=== PATIENT | female | born 1995 | race Caucasian/White ===

== ENCOUNTER 2021-01-04 11:30 | Outpatient (CLI) | payer OTHER, BC, SELFPAY ==
[2021-01-04 12:20] LABS: Hematocrit 34.9 % (37.0-47.0); Hemoglobin 11.7 g/dL (12.0-15.0); Mean Corpuscular HGB Conc 33.5 g/dl (32-36); Mean Corpuscular Hemoglobin 29.4 pg (26-34); Mean Corpuscular Volume 87.7 fl (80-100); Mean Platelet Volume 9.8 fl (7.4-10.4); Platelet Count Result 310 k/mm3 (150-375); Red Blood Count 3.98 M/mm3 (4.2-5.4); Red Cell Distribution Width 12.8 % (11.5-14.5); White Blood Count 9.4 K/mm3 (4.5-10.0)
[2021-01-05 10:35] LABS: Rapid Plasma Reagin Non-Reactive (NonReactive)
== END 2021-01-04 11:31 | disposition home or self-care (01) ==
PROVIDERS: Visit Provider Obstetrics & Gynecology
DX: Z01.818 Encounter for other preprocedural examination (principal)
CPT/HCPCS: 36415; 85027; 86592; 86850; 86900; 86901

== ENCOUNTER 2021-01-05 05:19 | Inpatient (IN) | payer BC, SELFPAY ==
--- NOTE | 2020-12-21 14:12 | PC.NURSE ---
PATIENT STATES BABY IS BREECH. STATES DR HUGHES HAS NOT SCHEDULED HER FOR C/S YET PATIENT GIVEN ALL THE INSTRUCTED ON NORMAL PRE-OP ROUTINE FOR C/S AND GIVEN REQUISITION FOR PRE-OP LAB DRAW
[2021-01-05] VITALS (59 sets, daily range): BP systolic 69–115; BP diastolic 30–85; PULSE 59–100; RESP 12–16; TEMP 36.4–37.1; O2SAT 95–100; BMI 31.2
[2021-01-05] MEDS: LACTATED RINGERS 1,000 ML 999 ML IV CONT ×2 (05:57→06:31)
--- NOTE | 2021-01-05 06:43 | WPDANESEPPF ---
Anes - Initial Pre Proc Eval Procedure: Operation Date: 01/05/21 07:30 Proposed Procedures p Primary Section - Natalia Canada MD Date/Time: 01/05/21 06:43 Surgeon: Natalia Canada MD Pre Op Diagnosis: C/S Patient Data Age: 25 Gender: F Height: 1.55 m Weight: 75 kg Last Vital Signs Pulse 82 01/05/21 05:42 BP 103/65 01/05/21 05:42 Allergies Allergy/AdvReac Type Severity Reaction Status Date / Time penicillin G Allergy Unknown Verified 12/21/20 13:44 Home Medications Medication Instructions Recorded Confirmed Type metoclopramide HCl 10 mg PO Q6H PRN 12/21/20 12/21/20 History prenat.vits,mickie,rjl-oasd-gerbt 1 tablet PO DAILY 12/21/20 12/21/20 History [ #2] sertraline 100 mg PO DAILY 12/21/20 12/21/20 History Patient hx anesthesia problems: none Family hx anesthesia problems: none PMFSH Family History Family History (Updated 12/21/20 @ 13:57 by Ehsan Marshall RN) Father Depression Bipolar 1 disorder Hypertension Mother Depression Hypertension Sibling Depression Grandparent Diabetes mellitus Depression Breast cancer in female Lung cancer Social History Social History Smoking status: Never smoker Second hand tobacco smoke exposure: Yes Substance use: never Spiritual care concerns: No Anes - Eval Final PreProcedure Day of Procedure 01/05/21 06:43 Patient weight: obese Heart: regular rate and rhythm Lungs: clear to auscultation and normal air movement Airway: Mallampati scale class III Neurological: alert and oriented Last oral intake: >/= 8 hours ASA classification: II Emergent: no Anesthetic plan: proceed Anesthesia type and monitoring: regional spinal and standard monitoring Informed Consent: The patient's anesthetic plan and its attendant risks and benefits were discussed with the patient/family/POA. Questions were solicited and answers provided to the satisfaction of the patient/family/POA.
--- NOTE | 2021-01-05 06:47 | PM.IMHP ---
H&P: HPI History of Present Illness Date/Time: 01/05/21 06:47 Tete is a 25yo @ 38.2wks (JOSE 01/17/21) who presents for scheduled due to breech malpresentation and IUGR. She has had regular care w/ [facility] and [facility]FM. She reports good movement. No LOF, VB. Her is complicated by: - Single umbilical artery and IUGR (<5%ile); has had routine care - Breech malpresentation - Paternal sister with T1; s/p low risk cffDNA - Anxiety and depression on zoloft 100mg Chief Complaint: scheduled Review of Systems Review of Systems: All systems reviewed & are unremarkable except as noted in HPI and below (HPI) [facility] Family History Family History Father Depression Bipolar 1 disorder Hypertension Mother Depression Hypertension Sibling Depression Grandparent Diabetes mellitus Depression Breast cancer in female Lung cancer Social History Social History Smoking status: Never smoker Second hand tobacco smoke exposure: Yes Substance use: never Spiritual care concerns: No Meds Home Medications and Allergies Home Medications Medication Instructions Recorded Confirmed Type metoclopramide HCl 10 mg PO Q6H PRN 12/21/20 12/21/20 History prenat.vits,mickie,vyp-nvla-lecsn 1 tablet PO DAILY 12/21/20 12/21/20 History [ #2] sertraline 100 mg PO DAILY 12/21/20 12/21/20 History Allergies Allergy/AdvReac Type Severity Reaction Status Date / Time penicillin G Allergy Unknown Verified 12/21/20 13:44 Vital Signs Vital Signs - 24 hr 01/05/21 05:42 Pulse Rate 82 Blood Pressure 103/65 Exam Const: General: cooperative, healthy appearing, comfortable and no acute distress Resp: Effort & Inspection: normal respiratory effort and able to speak in complete sentences Cardio: Rate: regular rate GI: GI Palp: No abdominal tenderness and Yes Soft to palpation : Other: FHT's: 120's/ mod danis/ + accels/ no decels - cat 1 TOCO: no ctx's Membranes: intact Presentation: breech Skin: General skin exam: normal color Neuro: General: patient oriented x3 Extrem: General: normal to inspection Psych: Appearance: grossly normal Affect: normal affect Assessment and Plan Assessment and plan (1) IUGR (intrauterine growth restriction): Status: Acute (2) Malpresentation of fetus: Qualifiers: malpresentation type: breech Fetus number: single or unspecified fetus Qualified Code(s): O32.1XX0 - Maternal care for breech presentation, not applicable or unspecified Code(s): O32.9XX0 - Maternal care for malpresentation of fetus, unspecified, not applicable or unspecified Status: Acute (3) 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 - Risks and benefits discussed - Anesthesia consult
--- NOTE | 2021-01-05 07:17 | WPDHPUPDATE1 ---
History and Physical Update Update Date/Time: 01/05/21 07:17 History and Physical has been reviewed, including an updated exam of the patient. There are NO changes in the patient's condition. Risks, benefits, and alternatives have been discussed and questions answered. Patient agrees to proceed with procedure.
--- NOTE | 2021-01-05 08:31 | P.PCNOB_ITS ---
OB - Delivery Note Procedure Delivery date: 01/05/21 Procedure: Procedures Operation Date: 01/05/21 07:30 Actual Procedure Side Surgeon p Primary Section Bilateral Natalia Canada MD Route of delivery: (breech malpresentation & IUGR) Quantitative Blood Loss (ml): 575 Anesthesia type: Spinal Disposition: floor [place] Baby Date of : 01/05/21 Time of : 08:01 Weeks of gestation at delivery: 38 Infant gender: Female Weight (pounds): 6 Weight (ounces): 10 presentation: ramon breech Placenta delivery description: Expressed cord vessel description: 2 Vessels (single umbilical artery) score one minute: 7 score five minutes: 9 Narrative: She was counseled on all risks and benefits in detail. Bedside US was performed and verified brrech malpresentation. She was taken to the operating room where spinal epidural was placed. She was then prepped and draped in the normal sterile fashion. She received 2g Ancef and a time out was performed. A P fannenstiel incision was made in the skin and carried down to the underlying fascia. The fascia was nicked on either side of the midline and the fascial incision was extended laterally and superiorly. The fascia was then elevated and the underlying rectus muscles were dissected off the fascia, superiorly and inferiorly. The rectus muscles were then in the midline and the peritoneum was entered bluntly. Once adequate exposure was obtained, a rich and bladder blade retractors were placed within the abdomen. A bladder flap was created. A low transverse incision was made on the lower uterine segment and clear fluid was noted. The buttocks were brought to the hysterotomy and breech maneuvers were performed and the infant was delivered. The fetus had spontaneous cry and the mouth and nose were bulb suctioned. The cord was clamped and cut and the fetus was handed off to the awaiting pediatric nurse. A segment of the cord was collected for cord gases. The remaining cord blood was collected for typing. With pitocin infusing, the placenta delivered with gentle traction on the cord without complications. The uterus was then cleared out of all clots and debris using a clean, moist lap. The hysterotomy was then repaired in a running, interlocking fashion using 0 Vicryl. A second layer imbricating suture was then made using 0 Vicryl. An additional figure of eight stitch was placed on the left side of the hysterotomy. The hysterotomy was found to be hemostatic and good uterine tone was noted. The bilateral adnexa were examined and found to be normal. The pelvis was cleared of all clots and fluid. The retractors were removed from the abdomen. The peritoneum, muscle, and fascia were examined and made hemostatic with bovie cautery. The fascia was then repaired using two separate 0 Vicryl sutures in a running fashion. The subcutaneous tissue was then irrigated and made hemostatic with bovie cautery. The subcutaneous tissue was then reapproximated using 2-0 Vicryl. The skin was then closed using 4-0 Monocryl in a running subcuticular fashion. Sponge, lap, needle and instrument counts were correct at the end of the procedure x2. The patient tolerated the procedure well and was taken to recovery in a stable condition.
[2021-01-05] MEDS: LORATADINE 10 MG TABLET PO (09:55)
[2021-01-05] MEDS: OXYTOCIN 30 UNITS/NS 500 ML 30 UNITS/500 ML BAG 125 UNITS IV CONT (10:45)
--- NOTE | 2021-01-05 11:50 | OBPPTRN ---
1045 Patient transferred to post room #291 via stretcher. Support person present. Oriented to unit, room, information board, rooming in, admission packet and security measures. Patient verbalizes understanding.
[2021-01-05] MEDS: KETOROLAC 30 MG/ML VIAL (*BKC) (12:36)
--- NOTE | 2021-01-05 14:00 | PC.NURSE ---
Breast pump provided due to transfer. Mother wishes to use her own pump. Instructions given on breast pump care and usage, pumping schedule, nipple care, and collection and storage of breast milk. Encouraged breast massage and manual expression to stimulate supply. Assessed patient for correct flange size, placement and draw. Patient verbalizes and demonstrates understanding of instructions.
[2021-01-05] MEDS: SERTRALINE HCL 50 MG TABLET 100 MG PO (15:15)
[2021-01-05] MEDS: DEXTROSE 5%/0.45% SOD CHL 1,000 ML 125 ML IV CONT (15:15)
[2021-01-05] MEDS: MULTIVIT/MIN/PREN/FOL AC/IRON TABLET 1 TAB PO (15:16)
[2021-01-05] MEDS: KETOROLAC 30 MG/ML VIAL (*BKC) IV PUSH (19:15)
[2021-01-05] MEDS: HYDROcodone/acetaminophen (*CRX) 5-325 MG TABLET 1 TAB PO (19:40)
[2021-01-05] MEDS: diphenhydrAMINE HCl INJ 50 MG/ML VIAL 25 MG IV PUSH (19:50)
[2021-01-06] MEDS: diphenhydrAMINE HCl INJ 50 MG/ML VIAL 25 MG IV PUSH (01:30)
[2021-01-06] MEDS: KETOROLAC 30 MG/ML VIAL (*BKC) IV PUSH (01:31)
[2021-01-06 04:15] VITALS: BP 90/49; PULSE 74; RESP 12; TEMP 36.8; O2SAT 95
[2021-01-06 05:41] LABS: Basophils Percent Auto 0.4 % (0.2-1.2); Eosinophils Absolute Auto 0.1 K/mm3 (0-0.3); Eosinophils Percent Auto 1.1 % (0-4.4); Hematocrit 28.9 % (37.0-47.0); Hemoglobin 9.5 g/dL (12.0-15.0); Immature Granulocyte Absolute 0.04 K/mm3 (0.00-0.031); Immature Granulocyte Percent A 0.4 % (0-0.5); Lymphocytes Absolute Auto 1.93 K/mm3 (0.9-3.2); Lymphocytes Percent Auto 19.8 % (18.3-44.2); Mean Corpuscular HGB Conc 32.9 g/dl (32-36); Mean Corpuscular Hemoglobin 28.6 pg (26-34); Mean Platelet Volume 10.7 fl (7.4-10.4); Monocytes Absolute Auto 1.3 K/mm3 (0.1-0.6); Monocytes Percent Auto 13.3 % (2.6-8.5); Neutrophils Absolute Auto 6.4 K/mm3 (1.3-6.7); Platelet Count Result 283 k/mm3 (150-375); Red Blood Count 3.32 M/mm3 (4.2-5.4); Red Cell Distribution Width 12.9 % (11.5-14.5); White Blood Count 9.8 K/mm3 (4.5-10.0)
[2021-01-06] MEDS: HYDROcodone/acetaminophen (*CRX) 5-325 MG TABLET 1 TAB PO ×4 (05:58→19:44)
[2021-01-06 07:35] VITALS: BP 107/64; PULSE 85; RESP 16; TEMP 36.6; O2SAT 98
--- NOTE | 2021-01-06 07:49 | WPDANLDPN2 ---
Anes-Prog Note L&D Date/Time: 01/06/21 07:49 Comfortable throughout: section Neuraxial method: spinal Epidural/Spinal procedure site: clean & non-tender Neuro status: Neuro function grossly intact. Cardiovascular status: normal Respiratory status: normal Airway patency: baseline Mental status: baseline Post-Op hydration status: normal Vital Signs: Last Vital Signs Temp 36.8 C 01/06/21 04:15 Pulse 74 01/06/21 04:15 Resp 12 01/06/21 04:15 BP 90/49 L 01/06/21 04:15 Pulse Ox 95 01/06/21 04:15 Pain score (VAS): 0 I/O: Intake & Output 01/05/21 01/05/21 01/06/21 15:59 23:59 07:59 Intake Total 1800 400 Output Total 650 2950 950 Balance -650 -2360 -519 Post-procedural complaints: none Patient feedback: Patient satisfied with anesthetic care.
--- NOTE | 2021-01-06 07:50 | WPDANLDNPN2 ---
Anes-Prog Note L&D-Neuraxial Date/Time: 01/06/21 07:50 Neuraxial medications: intrathecal PF morphine Opiod-related complaints: none Patient feedback: Patient satisfied with post-operative pain management.
[2021-01-06] MEDS: MULTIVIT/MIN/PREN/FOL AC/IRON TABLET 1 TAB PO (07:54)
[2021-01-06] MEDS: IBUPROFEN 600 MG TABLET PO ×3 (07:55→19:43)
[2021-01-06] MEDS: POLYSACCHARIDE IRON COMPLEX 150 MG CAPSULE PO ×3 (07:57→19:43)
--- NOTE | 2021-01-06 08:45 | PC.NURSE ---
Consult with pt., mother continues to pump without difficulties or discomfort. Mother voices concerns at some pumping sessions she is unable to pump more than a few drops. Assured mother this is normal and milk should transition in within a few days and milk supply with slowly increase and become more consistent by volume.
[2021-01-06] MEDS: SERTRALINE HCL 50 MG TABLET 100 MG PO (09:06)
--- NOTE | 2021-01-06 13:14 | P.PNOB_ITS ---
OB - PN: Subj Subjective Date/time seen: 01/06/21 13:14 POD#1 Tete reports doing well. She says her pain is controlled; taking meds PRN. 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 She has tolerated regular diet w/o issue. Voided and passed gas. She has ambulated w/o symptoms of anemia. She is pumping. She would like to have a pass today to go see her daughter at [facility] and go home tomorrow. She reports the genetics specialist will see her daughter today (has low set ears, wide spaced nipples, feet/toe abnormalities, congenital corneal opacities, PFO). She denies CP, SOB, N/V, fever, chills, MARC, vision changes, dizziness or palpitations. OB - PN: Obj Data Labs CBC & Chem 7: 01/06/21 04:26 Labs: Laboratory Results - last 24 hr 01/06/21 04:26 WBC 9.8 RBC 3.32 L Hgb 9.5 L Hct 28.9 L MCV 87.0 MCH 28.6 MCHC 32.9 RDW 12.9 Plt Count 283 MPV 10.7 H Immature Gran % (Auto) 0.4 Neut % (Auto) 65.0 Lymph % (Auto) 19.8 Gilchrist % (Auto) 13.3 H Eos % (Auto) 1.1 Baso % (Auto) 0.4 Lymph # (Auto) 1.93 Gilchrist # (Auto) 1.3 H Eos # (Auto) 0.1 Baso # (Auto) 0.0 Abs Immat Gran (auto) 0.04 H Absolute Neuts (auto) 6.4 Absolute Nucleated RBC 0.0 Nucleated RBC % 0.0 OB - PN A/P Assessment and Plan (1) S/P section: Code(s): Z98.891 - History of uterine scar from previous surgery Status: Acute Plan day: 1 Plan: routine care Comments: - Ok to have day pass to [facility] - Will discharge home tomorrow - Take meds as prescribed, pelvic rest, no heavy lifting, incision care (remove dressing by day 7) - ER return precautions: n/v/abd pain, fever, bleeding, HTN Time Spent With Patient Time: Total time spent is greater than 50% in coordination of care (as documented) at patient's floor/unit and/or counseling patient: Review of Systems Review of Systems: All systems reviewed & are unremarkable except as noted in HPI and below (HPI) Exam Const: General: cooperative, healthy appearing, comfortable and no acute distress Resp: Effort & Inspection: normal respiratory effort and able to speak in complete sentences Auscultation: clear to auscultation bilaterally Cardio: Rate: regular rate GI: Inspection: non-distended GI Palp: Yes abdominal tenderness (appropriate) and Yes Soft to palpation Auscultation: normal bowel sounds Other: Pfannenstiel incision covered w/ clean dressing : Other: fundus firm below umbilicus Skin: General skin exam: normal color Neuro: General: patient oriented x3 Extrem: General: normal to inspection Psych: Appearance: grossly normal Affect: normal affect Attitude: cooperative
[2021-01-06] MEDS: DOCUSATE SODIUM 100 MG CAPSULE PO ×3 (13:58→19:43)
--- NOTE | 2021-01-06 14:24 | PC.NURSE ---
1415 Left on a 6 hour Therapeutic Pass to visit Infant at [facility]. Grandmother will drive her there.
[2021-01-06 19:50] VITALS: BP 114/71; PULSE 90; RESP 14; TEMP 37.3; O2SAT 100
--- NOTE | 2021-01-06 22:42 | PC.NURSE ---
Patient returned to floor via wheelchair from visiting at [facility] at 1930 on 01/06/21.
[2021-01-06] MEDS: HYDROcodone/acetaminophen (*CRX) 10-325 MG TABLET 1 TAB PO (22:56)
--- NOTE | 2021-01-07 05:24 | PC.NURSE ---
Patient viewed the discharge video Mother & Baby Care, The First Two Weeks . Patient was given the opportunity and encouraged to ask questions. Patient verbalized understanding of information shared and has been given the mother/baby guide for home reference.
[2021-01-07] MEDS: IBUPROFEN 600 MG TABLET PO (05:50)
--- NOTE | 2021-01-07 07:30 | PC.NURSE ---
Consult with pt., mother reports she is pumping regularly without difficulties or discomfort. Mother states she feels her milk may be transitioning in. Mother has increased amounts each session. Reviewed transition to breast milk and engorgement/relief. Reviewed regular medications mother is taking. Information provided per Joseline. Reviewed community resources on the [employer] website and in the Mom/Baby guide. Information on outpatient services provided. Mother has no further questions at this time.
[2021-01-07 08:10] VITALS: BP 118/68; PULSE 94; RESP 16; TEMP 37.3; O2SAT 100
[2021-01-07] MEDS: SERTRALINE HCL 50 MG TABLET 100 MG PO (08:55)
[2021-01-07] MEDS: MULTIVIT/MIN/PREN/FOL AC/IRON TABLET 1 TAB PO (08:56)
[2021-01-07] MEDS: POLYSACCHARIDE IRON COMPLEX 150 MG CAPSULE PO (08:56)
[2021-01-07] MEDS: HYDROcodone/acetaminophen (*CRX) 5-325 MG TABLET 1 TAB PO (08:56)
[2021-01-07] MEDS: DOCUSATE SODIUM 100 MG CAPSULE PO (08:56)
[2021-01-08 10:48] VITALS: BP 120/73; PULSE 75; RESP 20; TEMP 37.1; O2SAT 100
--- NOTE | 2021-01-10 17:42 | PM.OBDSVD ---
DS: Admitting Diagnosis Admitting Diagnosis Admitting Diagnosis: IUGR & breech DS: Discharge Diagnosis Discharge Diagnosis (1) S/P section: Code(s): Z98.891 - History of uterine scar from previous surgery Status: Acute (2) Malpresentation of fetus: Qualifiers: malpresentation type: breech Fetus number: single or unspecified fetus Qualified Code(s): O32.1XX0 - Maternal care for breech presentation, not applicable or unspecified Code(s): O32.9XX0 - Maternal care for malpresentation of fetus, unspecified, not applicable or unspecified Status: Acute (3) IUGR (intrauterine growth restriction): Status: Acute (4) 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 Status: Acute OB - DS: Summary OB Procedures : NST and Ultrasound OB Procedures Intrapartum: low cervical, transverse OB Procedures: : None Peripartum Data Infant Delivery Method: Section Procedures: Procedures Operation Date: 01/05/21 07:30 Actual Procedure Side Surgeon p Primary Section Bilateral Natalia Canada MD complications: none [place] 1: Gender: Female Disposition of : NICU (transferred to [facility] due to concerns for genetic anomoly) Status at Discharge Functional status at discharge: independent ambulation Overall status at discharge: patient is back to baseline Time Spent with Patient Time attestation: Total time spent providing and/or coordinating discharge services: Exam Const: General: cooperative, healthy appearing, comfortable and no acute distress Resp: Effort & Inspection: normal respiratory effort and able to speak in complete sentences Auscultation: clear to auscultation bilaterally Cardio: Rate: regular rate GI: Inspection: normal to inspection, non-distended and incision GI Palp: Yes abdominal tenderness and Yes Soft to palpation Auscultation: normal bowel sounds : Other: fundus firm Skin: General skin exam: normal color Neuro: General: patient oriented x3 Extrem: General: normal to inspection Psych: Appearance: grossly normal Affect: normal affect Attitude: cooperative Discharge Plan Discharge Attending physician on discharge: Natalia Canada Consulting providers: Carlitos Gonzalez Discharging Clinician: Natalia Canada Anticipated Discharge Date/Time: 01/07/21 08:00 Patient Disposition: Home, Self-Care Activity: may shower and pelvic rest Diet: as tolerated and regular Discharge Instructions: Education: Mom and Baby Guide Given to: Mother Follow-Up: Call your delivering provider's office for an appointment to be seen in: 4 Weeks Mom should come to the [facility] for the follow-up appointment. Appointment Date/Time: January 08, 2021 at 11:00 am What to expect at your follow-up visit: Physical Assessment Call [phone] if you are unable to keep your appointment time. BREAST CARE: * Wear a snug supportive bra. * For engorgement discomfort: Breast Feeding: * Apply warm moist washcloths * Express milk as needed to relieve engorgement * Wear loose clothing * For sore nipples: * Identify correct breast pump flange placement * Apply warm moist washcloths before and after pumping * Air dry nipples after pumping * May apply Lansinoh cream to nipples ABDOMINAL INCISION: * Maintain Mepilex dressing on incision for 1 week * Do NOT use lotions for powders on your incision * When showering, allow soap and water to run over the incision, but do not wash incision PERINEAL CARE: * Until bleeding stops, use your huang bottle after urinating * Change your pad frequently throughout the day * No tub baths until seen by your physician - You may shower ACTIVITY: * Rest as much as possible. * Do not exercise or lift any
== END 2021-01-07 09:06 | disposition home or self-care (01) | DRG 788 ==
LOC: ANHLDR 05:23 → ANHOB2 11:02
PROVIDERS: Admitting Provider Obstetrics & Gynecology; Visit Provider Obstetrics & Gynecology
PROC: 10D00Z1 Extraction of Products of Conception, Low, Open Approach (ICD-10-PCS; CPT 59514; principal; 2021-01-05 07:30)
DX: O32.1XX0 Maternal care for breech presentation, not applicable or unspecified (principal); Z37.0 Single live birth; Z3A.38 38 weeks gestation of pregnancy; O36.5930 Maternal care for other known or suspected poor fetal growth, third trimester, not applicable or unspecified; O69.89X0 Labor and delivery complicated by other cord complications, not applicable or unspecified; O99.214 Obesity complicating childbirth; E66.9 Obesity, unspecified; O99.344 Other mental disorders complicating childbirth; F41.8 Other specified anxiety disorders
CPT/HCPCS: 36415; 85025; A9270; J0131; J1200; J1885; J2274; J2370; J2405; J2590; J7120

== ENCOUNTER 2024-02-12 01:39 | Day surgery (SDC) | payer OTHER, SELFPAY ==
[2024-02-07 18:26] VITALS: BMI 25.4
--- NOTE | 2024-02-07 18:40 | PC.NURSE ---
Report to the Outpatient Waiting Room, entrance under the green pavilion located off [facility], at 0700 on 02-09-24. Planned Procedure Time: 0900. Time changes happen often and if your time is changed the preop area will call you the afternoon before. - You and your visitor will be asked to self-screen and do not enter if you have any COVID symptoms. - A mask is optional within the hospital at this time. Patients may have clear liquids (water, carbonated beverages, clear teas, apple juice) until 3 hours prior to surgery with a maximum of 20 ounces. 0600 - No food from midnight until time of surgery - Infants may have breast milk until 4 hours before surgery, formula 6 hours prior to surgery. - Children will be allowed to drink immediately following surgery. If applicable, please bring a bottle or sippy cup to assist with drinking. Juice, water, soda, and popsicles are readily available. For infants on formula, please bring formula the day of surgery. Pacifiers are allowed. Take the following medications with a SIP of water the morning of surgery: None DO NOT STOP ANY OF YOUR OTHER PRESCRIPTION MEDICATIONS PRIOR TO SURGERY ?EXCEPT THE FOLLOWING Medications to discontinue per physician: vitamins and supplements Date to take last dose: 02-09-24 Please no make-up, nail sri lankan, hairspray, perfume, deodorant, or body powder the day of surgery. No jewelry (including any body piercings) or valuables the day of surgery, leave them at home. Please take a shower or bath the night before, or the morning of, surgery with an antibacterial soap. Wear comfortable, loose fitting clothing. Children are encouraged to wear pajamas. - Jewelry must be removed prior to entering the operating room. Rings and piercings that are not removed may be cut off. - The hospital will not accept responsibility for valuables. - Please leave all valuables, including medications, at home the day of surgery. If you are going home after surgery, a licensed moving van driver must drive you home. - NO public transportation without another adult if you receive anesthesia. - We recommend that an adult stay with you for 24 hours following discharge. - We also recommend that you do not drive, make important decision, drink alcoholic beverages, or take any drugs that were not prescribed by your health care provider for at least 24 hours after your discharge time. For Pediatric surgeries, we recommend two adults accompany the child home. Follow any additional instructions given to you from your surgeon. If you or anyone in your household have experienced Covid symptoms in the past week, please notify your surgeon or the nurse liaison at the phone number below for possible testing. Telephone instructions given to Tete Starr and asked if any additional questions and then verbalized understanding. Patient advised to call surgeon office or pre surgery nurse liaison [phone] if any additional questions.
[2024-02-12] VITALS (9 sets, daily range): BP systolic 100–121; BP diastolic 55–76; PULSE 68–98; RESP 12–16; TEMP 36.4–36.6; O2SAT 98–100
[2024-02-12] MEDS: LACTATED RINGERS 1,000 ML 30 ML IV CONT (07:30)
[2024-02-12] MEDS: ACETAMINOPHEN 500 MG TABLET 1000 MG PO (07:32)
[2024-02-12] MEDS: KETOROLAC 15 MG/ML VIAL (*BKC) IV PUSH (07:32)
--- NOTE | 2024-02-12 08:08 | WPDANESEPPF ---
Anes - Initial Pre Proc Eval Procedure: Operation Date: 02/12/24 09:00 Proposed Procedures p Diagnostic Laparoscopy with Fulguration of Endometriosis - Natalia Canada MD Date/Time: 02/12/24 08:08 Surgeon: Natalia Canada MD Pre Op Diagnosis: pelvic pain Patient Data Age: 29 Gender: F Height: 1.55 m Weight: 60.8 kg Last Vital Signs Temp 36.4 C 02/12/24 07:07 Pulse 76 02/12/24 07:07 Resp 16 02/12/24 07:07 BP 108/63 02/12/24 07:07 Pulse Ox 100 02/12/24 07:07 O2 Del Method Room Air 02/12/24 07:07 Allergies Allergy/AdvReac Type Severity Reaction Status Date / Time penicillin G Allergy Unknown Verified 02/12/24 07:09 Home Medications Medication Instructions Recorded Confirmed Type hicigcpozk-xyhgidalfbskz-fhahoetr 1 cap PO Q4-6H PRN migraines 08/18/22 02/12/24 History 50 mg-325 mg-40 mg capsule ondansetron 4 mg disintegrating 4 mg PO Q8H PRN nausea and 01/04/24 02/12/24 Rx tablet vomiting #14 tabs ascorbic acid (vitamin C) 500 mg 500 mg PO DAILY 02/07/24 02/12/24 History tablet chlorzoxazone 500 mg tablet 500 mg PO PRN PRN migraines 02/07/24 02/12/24 History famotidine 40 mg tablet 40 mg PO HS 02/07/24 02/12/24 History magnesium 200 mg tablet 400 mg PO DAILY 02/07/24 02/12/24 History metformin 850 mg tablet 850 mg PO DAILY 02/07/24 02/12/24 History omega-3 fatty acids 500 mg PO DAILY 02/07/24 02/12/24 History omeprazole 40 mg capsule,delayed 40 mg PO DAILY 02/07/24 02/12/24 History release sertraline 25 mg tablet 25 mg PO HS 02/07/24 02/12/24 History spironolactone 50 mg tablet 50 mg PO DAILY 02/07/24 02/12/24 History Patient hx anesthesia problems: none Family hx anesthesia problems: none Results Review: All pre-operative results and documents have been reviewed as part of the pre-operative evaluation. [facility] Past Medical History Medical History delivery delivered Migraine Surgical History Surgical History H/O gynecological procedure Mirena IUD insertion 06/27/19 & removal 09/10/2019 Delfina IUD insertion 02/18/21 & removal 06/01/2021 Hx of tonsillectomy at age 18 Family History Family History Father Depression Bipolar 1 disorder Hypertension Mother Depression Hypertension Sibling Depression Grandparent Diabetes mellitus Depression Breast cancer in female Lung cancer Social History Social History Smoking status: Never smoker Second hand tobacco smoke exposure: No Alcohol intake: never Substance use: never Substance use type: does not use Do You Feel Safe in your Home?: Yes Lack of Transportation: No Lack of Food: Never True Current Housing: I Have Housing Concerned About Future Housing: No Difficulty Paying Gas/Electric Bills: No Difficulty Paying for Meds: No Currently Unemployed: No Education: Decline to Answer Difficulty w/ Childcare or Family Care: Decline to Answer Living arrangements: with family 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 Gender identity (if verbalized by the patient): Female Sexual Orientation (if Verbalized by the Patient): Straight or Heterosexual Spiritual care concerns: No Anes - Eval Final PreProcedure Day of Procedure 02/12/24 08:08 Patient weight: normal Heart: regular rate and rhythm Lungs: clear to auscultation Airway: Mallampati scale class II Neurological: alert and oriented Last oral intake: >/= 8 hours ASA classification: II Emergent: no Anesthetic plan: proceed Anesthesia type and monitoring: general ETT and standard monitoring Results Review: All pre-operative results and documents have been reviewed as part of the pre-operative evaluation. Informed Co
[2024-02-12] MEDS: SCOPOLAMINE 1 MG PATCH 1 PATCH TRANSDERM (08:13)
--- NOTE | 2024-02-12 08:45 | PM.IMHP ---
H&P: HPI History of Present Illness Date/Time: 02/11/24 19:20 Chief Complaint: pelvic pain Narrative: Tete is a 29yo P1001, who presents for surgical intervention for pelvic pain. She was on OCPs until Aug 2023; at her [employer], she was started on [employer] and tried it for 2 months before stopping it. She has a h/o severe pelvic pain and went to the ER multiple times, most recently was found to have a large hemorrhagic left ovarian cyst. She had a lot of pain, and was doing better at her [employer] but still continues to have some discomfort with intercourse. Repeat [employer] US 6wks later showed the cyst had resolved. She was on an OCP w/ 35mcg of estrogen; and reports it made her emotional the week before her period, but she has had two painful cysts in the last few months; has not had any issues this month since stopping them. She thinks they are done having children, but not fully sure-- does not want to proceed with salpingectomy. Review of Systems Constitutional: Constitutional: Denies chills, Denies fever(s) and Denies headache(s) Eyes: Eyes: Denies change in vision ENT: Denies dizziness and Denies headache(s) Cardiovascular: Cardiovascular: Denies chest pain and Denies dyspnea Respiratory: Respiratory: Denies cough and Denies dyspnea Gastrointestinal: Gastrointestinal: Denies abdominal pain and Denies change in stool character Genitourinary: Genitourinary: Denies abnormal menses, Reports dyspareunia, Reports pelvic pain, Denies vaginal discharge, Denies vaginal odor and Denies vaginal pruritus Neurologic: Denies dizziness and Denies headache(s) Psychiatric: Psychiatric: Denies anxiety and Denies depression [facility] Past Medical History Medical History delivery delivered Migraine Surgical History Surgical History H/O gynecological procedure Mirena IUD insertion 06/27/19 & removal 09/10/2019 Delfina IUD insertion 02/18/21 & removal 06/01/2021 Hx of tonsillectomy at age 18 Family History Family History Father Depression Bipolar 1 disorder Hypertension Mother Depression Hypertension Sibling Depression Grandparent Diabetes mellitus Depression Breast cancer in female Lung cancer Social History Social History Smoking status: Never smoker Second hand tobacco smoke exposure: No Alcohol intake: never Substance use: never Substance use type: does not use Do You Feel Safe in your Home?: Yes Lack of Transportation: No Lack of Food: Never True Current Housing: I Have Housing Concerned About Future Housing: No Difficulty Paying Gas/Electric Bills: No Difficulty Paying for Meds: No Currently Unemployed: No Education: Decline to Answer Difficulty w/ Childcare or Family Care: Decline to Answer Living arrangements: with family 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 Gender identity (if verbalized by the patient): Female Sexual Orientation (if Verbalized by the Patient): Straight or Heterosexual Spiritual care concerns: No Meds Home Medications and Allergies Home Medications Medication Instructions Recorded Confirmed Type deryfuxylc-huukbqtqzhrqp-vxfrpoeh 1 cap PO Q4-6H PRN migraines 08/18/22 02/12/24 History 50 mg-325 mg-40 mg capsule ondansetron 4 mg disintegrating 4 mg PO Q8H PRN nausea and 01/04/24 02/12/24 Rx tablet vomiting #14 tabs ascorbic acid (vitamin C) 500 mg 500 mg PO DAILY 02/07/24 02/12/24 History tablet chlorzoxazone 500 mg tablet 500 mg PO PRN PRN migraines 02/07/24 02/12/24 History famotidine 40 mg tablet 40 mg PO HS 02/07/24 02/12/24 History magnesium 200 mg tablet 400 mg PO DAILY 02/07/24 02/12/24 History metformin 850 mg tablet 850 mg PO DAILY 02/07/2401/20
--- NOTE | 2024-02-12 08:45 | WPDHPUPDATE1 ---
History and Physical Update Update Date/Time: 02/12/24 08:45 History and Physical has been reviewed, including an updated exam of the patient. There are NO changes in the patient's condition. Risks, benefits, and alternatives have been discussed and questions answered. Patient agrees to proceed with diagnostic laparoscopy, bilateral salpingectomy ([place] sterilization form signed 11/16/23), possible unilateral ovarian cystectomy, possible fulguration of endometrial implants.
[2024-02-12] MEDS: BUPIVACAINE/EPINEPHRINE 0.5% 50 ML VIAL 10 ML INFILTRATE (09:44)
--- NOTE | 2024-02-12 10:48 | W.PM.PROC2 ---
Procedure Note - Detailed Date of Procedure 02/12/24 Pre-op Diagnosis pelvic pain sterilization Post-op Diagnosis Other (endometriosis) Procedure Performed Diagnostic laparoscopy, bilateral salpingectomy, fulguration/removal of endometrial implants Surgeon Natalia Canada MD Anesthesia General and Local (9cc of 0.5% marcaine w/ epi) Findings Uterus sharply retroverted, sounded to 6cm (which was only to the ROSIE, near scar). Significant endometriosis noted on the left ovary, left pelvic side wall, posterior uterine wall, and posterior [id number]-- biopsies sent. The bladder was scarred to the mid uterus from prior . Small area of endometriosis noted on anterior mid uterus. The right ovary with small follicles, no overt ovarian masses. The bilateral fallopian tubes were scarred to the ovaries; scar tissue removed and tubes easily removed and sent separately. Good hemostasis at end of case. Description of Procedure Tete was taken to the operating room where she was placed under general endotracheal anesthesia without complications. She was then prepped and draped in the usual sterile fashion in the dorsal lithotomy position with her legs in low Rai stirrups and her arms tucked at her side with a strap over her chest. A time-out was performed and no preoperative antibiotics were indicated. My attention was turned down below where her bladder was drained via straight catheterization. A bivalve speculum was then placed within the vagina where the cervix was easily identified. The anterior lip of the cervix was grasped with a single-tooth tenaculum, the uterus was sounded, and a diagnostic uterine manipulator was placed without complications. My gloves were changed and my attention was turned to her abdomen. An umbilical incision was made, and a 5 mm trocar was placed under direct visualization without complications. Once intra-abdominal placement was confirmed the abdomen was insufflated with carbon dioxide gas. She was then placed in Trendelenburg and two additional 5 mm ports were placed in the left and right lower quadrants under direct visualization without complications. The above findings were noted. The left fallopian tube was then elevated and the scar tissue and mesosalpinx were serially clamped, coagulated, transected using the LigaSure device until the proximal end of the fallopian tube was reached. The proximal end of the fallopian tube was cross clamped, coagulated and transected. The tube was then removed from the abdomen. The same procedure was then performed on the right side without any complications. Good hemostasis was noted. The scar tissue/endometriosis was removed from the posterior uterine wall, cul-dec-sac, and left pelvic side wall and sent as biopsies to pathology. The scar tissue from the ovary to the left pelvic side wall was removed and fulgurated. The remaining areas of endometriosis was fulgurated over the uterus, pelvic side pappas, cul-de-sac, and ovaries. A small area of endometriosis (white) on the anterior mid uterus was fulgurated, as well. Good hemostasis was noted. The pelvis was thoroughly irrigated and suctioned free. All instruments were removed from the abdomen. The insufflation was released and the trocars were removed. The 3 laparoscopic incision sites were reapproximated using 4-0 Monocryl and covered with Dermabond. The incisions were then infiltrated using 0.5% Marcaine. The uterine manipulator was removed. Sponge, lap, instrument, and needle counts were correct at the end of the procedure. Patient was awoken from general anesthesia and taken to recovery with plans of same-day discharge home. Estimated Blood Loss 20 IV Fluids 1,500 Urine Output 20 Pathology Yes (fallopian tubes (sent separately), left pelvic side wall bx, posterior uterine wall bx) Complications No immediate complications Condition Stable Disposition Same day [facility] Billing Surgery - Charge Forward: Surgery Billing
[2024-02-12] MEDS: fentaNYL CITRATE INJ (*CRX) 100 MCG/2 ML VIAL 25 MCG IV PUSH ×4 (11:00→11:55)
[2024-02-12] MEDS: MIDAZOLAM HCL (*CRX) 2 MG/2 ML VIAL IV PUSH (11:04)
[2024-02-12] MEDS: ONDANSETRON INJ 4 MG/2 ML VIAL IV PUSH (11:23)
[2024-02-12] MEDS: oxyCODONE HCL (*CRX) 5 MG TAB IR PO (12:30)
== END 2024-02-12 13:10 | disposition home or self-care (01) ==
PROVIDERS: PCP Family Medicine; Visit Provider Obstetrics & Gynecology
PROC: (CPT 49320; principal; 2024-02-12 09:00)
DX: N80.102 Endometriosis of left ovary, unspecified depth (principal); N80.352 Endometriosis of the left pelvic sidewall, unspecified depth; N80.00 Endometriosis of the uterus, unspecified; N80.329 Endometriosis of the posterior cul-de-sac, unspecified depth; Z30.2 Encounter for sterilization; Z79.84 Long term (current) use of oral hypoglycemic drugs
CPT/HCPCS: 58661; 58662; 88302; 88305; A9270; J1100; J1885; J2250; J2405; J2704; J3010; J7030; J7120